=== PATIENT | female | born 1995 | race Caucasian/White ===

== ENCOUNTER 2025-10-31 21:10 | Emergency (ER) | payer OTHER, SELFPAY ==
[2025-10-31 21:16] VITALS: BP 122/87; PULSE 84; RESP 18; TEMP 36.8; O2SAT 94; BMI 42.1
[2025-11-01 00:51] VITALS: BP 113/66; PULSE 91; RESP 18; TEMP 36.4; O2SAT 97
--- NOTE | 2025-11-01 01:59 | PC.NURSE ---
Pt LWBS from [facility]. Pt stated i cannot wait any longer .
== END 2025-11-01 02:10 | disposition left against medical advice (07) ==
PROVIDERS: Emergency Provider Emergency Medicine
DX: M79.89 Other specified soft tissue disorders (principal); Z53.21 Procedure and treatment not carried out due to patient leaving prior to being seen by health care provider
CPT/HCPCS: 99281; 99284